=== PATIENT | male | born 1950 | race Caucasian/White ===

== ENCOUNTER 2016-09-02 13:10 | Emergency (ER) | payer OTHER ==
[2016-09-02 13:44] VITALS: PULSE 77; RESP 16; TEMP 97.3; O2SAT 94
[2016-09-02] MEDS ORDERED: TDAP ADULT 0.5 ML VIAL (BOOSTRIX) IM ONE (13:52)
--- NOTE | 2016-09-02 13:56 | UCPHY ---
H & P Patient Type: New Smoking Status: Unknown if ever smoked Time Seen by Provider: 09/02/16 13:32 HPI/ROS: CHIEF COMPLAINT: left thumb laceration HISTORY OF PRESENT ILLNESS: 66-year-old male presents with a laceration to his left thumb from a razor blade that happened at work today. Patient is right- hand-dominant, tetanus is not up-to-date, he denies numbness or tingling in this hand, denies other complaints. (Amy Bojorquez) Physical Exam: GEN: Awake, alert, oriented, no acute distress RESP: nl resp effort MSK: Full flexion and extension against resistance of left thumb at IP and MCP joint, 2 point discrimination intact, cap refill less than 2 seconds SKIN: 1.5 cm laceration to dorsal aspect of left thumb just distal to IP joint , not involving fingernail. (Amy Bojorquez) Constitutional: Initial Vital Signs Temperature (C) 36.3 C 09/02/16 13:20 Heart Rate 77 09/02/16 13:20 Respiratory Rate 16 09/02/16 13:20 Blood Pressure 185/110 H 09/02/16 13:20 O2 Sat (%) 94 09/02/16 13:20 O2 Delivery Mode Room Air Allergies/Adverse Reactions: No Known Allergies Allergy (Verified 09/02/16 13:39) Home Medications: Medication Instructions Recorded Lisinopril 10 09/02/16 Metformin HCl 09/02/16 MDM/Departure - MDM Procedures: Procedure: Laceration repair. Verbal consent was obtained from the patient. The 1.5 cm laceration on the left thumb was anesthetized using 1% lidocaine without epinephrine using a digital block. The wound was carefully irrigated by the emergency department land survey technician. Next, the wound was prepped and draped in sterile fashion and explored to its base with a gloved finger. There were no deep structures involved. No tendon injury was identified. No vascular injury was identified. No foreign bodies were identified. The wound was repaired with 5.0 Prolene, 5. Simple interrupted sutures. The wound repair was simple. The procedure was performed by myself. Tetanus and antibiotic status were addressed. (Amy Bojorquez) Medications Given: Discontinued Medications Diphtheria/Tetanus/Acell Pertussis (Boostrix) 0.5 ml IM .ONCE ONE Stop: 09/02/16 13:53 Last Admin: 09/02/16 14:03 Dose: 0.5 ml ED Course/Re-evaluation: Patient has a history of hypertension, blood pressure in the emergency department is 187/110 just a his primary care doctor last week who increased his dose of lisinopril. He has a follow-up appointment for his blood pressure. Patient denies chest pain, shortness of breath, headache, blurred vision. ( Amy Bojorquez) The patient was evaluated and managed by the nurse practitioner, Amy Bojorquez. My co-signature indicates that I have reviewed this chart and I agree with the findings and plan of care as documented. I am the secondary supervising physician. (Carmen Hernandez) - Depart Disposition: Home, Routine, Self-Care Clinical Impression: Laceration of left thumb Qualifiers: Encounter type: initial encounter Qualifier Code: (S61.012A) Laceration without foreign body of left thumb without damage to nail, initial encounter Condition: Good Instructions: Finger Laceration (ED) Additional Instructions: Return to the emergency department in 12-14 days for suture removal, return sooner for any signs of infection, drainage, redness, pain. Wash daily with soap and water, place antibiotic ointment and Band-Aid over finger while at work , keep open to air at night. Stand Alone Forms: Work Comp Follow Up Referrals: NONE *PRIMARY CARE P,. [Primary Care Provider] - As per Instructions - PQRS PQRS Measurement: na (Amy Bojorquez)
[2016-09-02 15:30] VITALS: BP 165/105
== END 2016-09-02 15:26 | disposition home or self-care (01) ==
LOC: CED 13:10
PROC: 0HQGXZZ Repair Left Hand Skin, External Approach (ICD-10-PCS; principal; 2016-09-02)
DX: S61.012A Laceration without foreign body of left thumb without damage to nail, initial encounter (principal); W26.8XXA Contact with other sharp object(s), not elsewhere classified, initial encounter; Y99.0 Civilian activity done for income or pay
CPT/HCPCS: G0463-PO

== ENCOUNTER → 2016-09-03 | Outpatient (CLI) | payer OTHER ==
--- NOTE | 2016-09-03 14:29 | US ---
Limited Abdominal Ultrasound INDICATION: Right upper quadrant pain. TECHNIQUE: Limited right upper quadrant ultrasound is performed. No priors for comparison. FINDINGS: Pancreas is partially visualized. It is grossly normal. Abdominal aorta tapers normally and is nonaneurysmal. No significant atherosclerosis. Liver averages about 12 to 13 cm. It is heterogeneous. Liver edge is slightly irregular. No intrahepa tic ductal dilatation. Gallbladder is decompressed. There may be an echogenic focus along the anterior wall that is nondepen dent, possibly representing a polyp. No stones or sludge. Gallbladder wall estimates at 2 mm. Common duct measures 3 mm. No pericholecystic fluid. Sonographic Valverde sign is negative. Right kidney measures 9.2 x 5.5 x 6.4 cm. No hydronephrosis. No stones or mass or cyst. No ascites or effusion. IMPRESSION: 1. Echogenic liver with irregular border, suggestive of intrinsic liver disease. 2. Possible small gallbladder polyp. 3. Otherwise normal limited right upper quadrant ultrasound.
== END ==
LOC: BRMIMAGING 13:03
PROVIDERS: ATTEND Internal Medicine
DX: R93.2 Abnormal findings on diagnostic imaging of liver and biliary tract (principal); R10.11 Right upper quadrant pain
CPT/HCPCS: 76705-PO

== ENCOUNTER → 2017-03-28 | Outpatient (CLI) | payer OTHER | LOC: BRMIMAGING 08:17 | PROVIDERS: ATTEND Internal Medicine | DX: B19.20 Unspecified viral hepatitis C without hepatic coma (principal) | CPT/HCPCS: 76705-PO ==